=== PATIENT | male | born 1975 | race Caucasian/White ===

== ENCOUNTER 2024-05-10 08:55 | Day surgery (SDC) | payer OTHER ==
[2024-05-10] MEDS ORDERED: Bupivacaine PF 0.5% 30 ML VIAL ONE (09:36)
[2024-05-10] MEDS ORDERED: CEFAZOLIN 2 GM VIAL ONE (10:41)
[2024-05-10] MEDS ORDERED: Fentanyl 100 MCG/2 ML VIAL ONE ×2 (11:14→11:44)
[2024-05-10] MEDS ORDERED: PROPOFOL 20 ML ONE (11:14)
[2024-05-10] MEDS ORDERED: Famotidine/PF 20 mg/2ml Vial ONE (11:16)
[2024-05-10] MEDS ORDERED: Lidocaine 2% PF 5 ML VIAL ONE (11:16)
[2024-05-10] MEDS ORDERED: Promethazine HCl 25 MG/ML VIAL IM PRN (11:30)
[2024-05-10] MEDS ORDERED: Ropivacaine 0.2% 550 ML 550 ML NERVE BLCK SCH (11:30)
[2024-05-10] MEDS ORDERED: Zolpidem Tartrate 5 MG TAB PO PRN (11:30)
[2024-05-10] MEDS ORDERED: Ondansetron PF 4 MG/2 ML Vial IVP PRN (11:30)
[2024-05-10] MEDS ORDERED: Glycopyrrolate 0.2 MG/ML 5 ML SYRINGE ONE (11:31)
[2024-05-10] MEDS ORDERED: ePHEDrine Sulfate 50 MG/10 ML VIAL ONE (11:38)
[2024-05-10] MEDS ORDERED: Ketorolac Tromethamine 30 MG (1 mL) VIAL ONE (11:42)
[2024-05-10] MEDS ORDERED: Dexamethasone 4 mg/ml Vial ONE (11:42)
[2024-05-10] MEDS ORDERED: Ondansetron PF 4 MG/2 ML Vial ONE (11:42)
[2024-05-10] MEDS ORDERED: HYDROcodone/Acetaminophen 5/325 mg Tablet ONE (14:25)
== END 2024-05-10 14:50 | disposition home or self-care (01) ==
LOC: CSHSDC 08:55
PROVIDERS: ATTEND Podiatrist Foot & Ankle Surgery
PROC: 0LQW0ZZ Repair Left Foot Tendon, Open Approach (ICD-10-PCS; principal; 2024-05-10)
DX: S86.312D Strain of muscle(s) and tendon(s) of peroneal muscle group at lower leg level, left leg, subsequent encounter (principal); M76.72 Peroneal tendinitis, left leg; K21.9 Gastro-esophageal reflux disease without esophagitis; F17.200 Nicotine dependence, unspecified, uncomplicated; Z79.1 Long term (current) use of non-steroidal anti-inflammatories (NSAID); Z79.2 Long term (current) use of antibiotics; Z79.899 Other long term (current) drug therapy; W22.09XD Striking against other stationary object, subsequent encounter
CPT/HCPCS: A4306; C1762; J0665; J1100; J1885; J2405; J2704; J2795; J3010; J3490